=== PATIENT | female | born 1965 | race Two or more races ===

== ENCOUNTER 2020-04-18 06:21 | Day surgery (SDC) | payer OTHER | END 2020-04-18 10:40 | disposition home or self-care (01) | LOC: CIR.AMB 06:21 → AMB-ENDOS 06:21 → CIR.AMB 15:00 | PROVIDERS: ATTEND Colon & Rectal Surgery | DX: D12.3 Benign neoplasm of transverse colon (principal); Z20.828 Contact with and (suspected) exposure to other viral communicable diseases; K64.8 Other hemorrhoids ==

== ENCOUNTER 2023-02-24 11:10 | Emergency (ER) | payer OTHER ==
[~2023-02-24] VITALS: Ht 167.6 cm; Wt 78.5 kg
[2023-02-24] MEDS ORDERED: METFORMIN HCL500 M3 (11:57)
[2023-02-24] MEDS ORDERED: SYNTHROID75 MCG PO (11:58)
[2023-02-24] MEDS ORDERED: CRESTOR10 MG PO (11:58)
[2023-02-24 13:16] LABS: HEMATOCRIT 39.2 % (36.0-45.00); HEMOGLOBIN 13.3 g/dL (12.0-15.00); MEAN CELL VOLUME 88.8 fL (80.00-100.00); MEAN CORPUSCULAR HEMOGLOBIN 30.2 pg (27.00-32.0); PLATELET COUNT 270 K/uL (150-450); RED BLOOD COUNT 4.41 M/uL (4.00-6.00); RED CELL DISTRIBUTION WIDTH 14.3 % (11.5-14.5)
[2023-02-24 13:18] LABS: URINE APPEARANCE Clear; URINE BILIRRUBIN Negative (NEGATIVE); URINE BLOOD Negative; URINE COLOR Yellow; URINE GLUCOSE Negative (NEGATIVE); URINE LEUKOCYTE Negative; URINE NITRATE Negative; URINE PROTEIN Negative (NEGATIVE); URINE UROBILINOGEN 0.2 E.U./dl
[2023-02-24 13:22] LABS: URINE BACTERIA 20.1 uL (0.0-1933)
[2023-02-24 13:34] LABS: URINE RBC 0.5 uL (0.0-20.8)
[2023-02-24 13:44] LABS: CALCIUM 9.6 mg/dL (8.5-10.1); CREATININE SERUM 0.77 mg/dL (0.55-1.02); GFR 76.73; POTASSIUM 4.6 mEq/L (3.5-5.1)
[2023-02-24] MEDS ORDERED: PYRIDIUM DS200 MG (14:51)
[2023-02-24] MEDS ORDERED: MACROBID 100 M100 MG PO (14:51)
[2023-02-24] MEDS ORDERED: PYRIDIUM DS200 MG PO (14:52)
== END 2023-02-24 15:01 | disposition home or self-care (01) ==
LOC: ER 11:11
PROVIDERS: General Practice
DX: R30.0 Dysuria (principal); N76.0 Acute vaginitis; Z94.83 Pancreas transplant status; E11.9 Type 2 diabetes mellitus without complications; Z79.84 Long term (current) use of oral hypoglycemic drugs; E03.9 Hypothyroidism, unspecified
CPT/HCPCS: 36415; 96365; 99284; J0696; J1885